=== PATIENT | female | born 1995 | race African-American/Black ===

== ENCOUNTER 2017-01-13 10:13 | Emergency (ER) | payer SELFPAY ==
[2017-01-13 10:28] VITALS: BMI 27.4
[2017-01-13] MEDS ORDERED: ACETAMINOPHEN 500 MG TABLET (FP) PO ONE (10:38)
[2017-01-13] MEDS ORDERED: SODIUM CHLORIDE 1,000 ML IV STA ×2 (10:38→12:36)
--- NOTE | 2017-01-13 10:59 | PDOC ---
History of Present Illness - General Chief Complaint: Syncope/Near Syncope Stated Complaint: SYNCOPE Time Seen by Provider: 01/13/17 10:19 History Source: Patient Exam Limitations: No Limitations - History of Present Illness Initial Comments: 01/13/17 11:00 21-year-old female presents the ED with a syncopal episode. Patient states the past 2 days has had headache, sore throat, fever, and myalgia. Patient states yesterday had Tea but did not have appetite for anything else. Today when she got up to brush her teeth, in the bathroom, the mother states she looked weak and next thing she knows she collapsed. But the mother was able to catch her and place her on the floor. Mother states she called EMS and by the time EMS arrived patient was back to baseline but concern for the other symptoms she was brought to the ER. Patient denies headache, ear pain, was due to her neck stiffness, chest pain, shortness of breath, cough, abdominal pain, nausea, diarrhea or dysuria. Patient denies recent travel, or medical history Presenting Symptoms: Dizziness, Syncope Timing/Duration: reports: resolved prior to arrival Severity/Quality: reports: moderate Associated Symptoms: Yes: Syncope Past History - Past Medical History Allergies/Adverse Reactions: Allergies Allergy/AdvReac Type Severity Reaction Status Date / Time No Known Allergies Allergy Verified 01/13/17 10:25 Home Medications: Ambulatory Orders NK [No Known Home Medication] 01/13/17 Other medical history: DENIES. - Reproductive History LMP Normal: Yes Is Patient Now?: No - Psycho/Social/Smoking Cessation Hx Anxiety: No Suicidal Ideation: No Smoking History: Never smoked Hx Alcohol Use: No Drug/Substance Use Hx: No Substance Use Type: None Patient Lives Alone: No Lives with/in: parents Review of Systems - Review of Systems Able to Perform ROS?: Yes Constitutional: Yes: Chills, Loss of Appetite, Weakness HEENTM: Yes: Throat Pain Respiratory: No: Symptoms reported Cardiac (ROS): Yes: Lightheadedness ABD/GI: Yes: Poor Appetite, Poor Fluid Intake : No: Symptoms Reported Musculoskeletal: No: Symptoms Reported Integumentary: No: Symptoms Reported Neurological: Yes: Weakness, Dizziness *Physical Exam - Vital Signs Last Vital Signs Temp Pulse Resp BP Pulse Ox 101.7 F H 97 H 18 136/71 100 01/13/17 10:26 03/16/17 10:26 01/13/17 10:26 01/13/17 10:26 01/13/17 10:26 - Physical Exam General Appearance: Yes: Nourished, Appropriately Dressed. No: Apparent Distress HEENT: positive: EOMI, [place], TMs Normal, Pharyngeal Erythema (mild with minimal exudate to 3+ tonsils) Neck: positive: Supple. negative: Lymphadenopathy (R), Lymphadenopathy (L) Respiratory/Chest: positive: Lungs Clear, Normal Breath Sounds. negative: Respiratory Distress, Accessory Muscle Use Cardiovascular: positive: Regular Rhythm, Regular Rate. negative: Murmur Gastrointestinal/Abdominal: positive: Soft. negative: Tenderness Integumentary: positive: Normal Color, Warm, Moist Neurologic: positive: Motor Strength 5/5 (ambulatory) ED Treatment Course - LABORATORY CBC & Chemistry Diagram: 01/13/17 11:20 01/13/17 11:20 - ADDITIONAL ORDERS Additional order review: Laboratory Results 01/13/17 01/13/17 01/13/17 12:00 11:20 11:20 Sodium 138 Potassium 3.5 Chloride 103 Carbon Dioxide 26 Anion Gap 9 BUN 10 Creatinine 0.7 Creat Clearance w eGFR > 60 Random Glucose 93 Lactic Acid 1.162 Calcium 8.6 Total Bilirubin 0.5 AST 14 L ALT 17 Alkaline Phosphatase 39 L Total Protein 7.2 Albumin 3.6 Urine Color Yellow Urine Appearance Clear Urine pH 6.0 Ur Specific [place] >= 1.030 Urine Protein Trace H Urine Glucose (UA) Negative Urine Ketones 1+ H Urine Blood Negative Urine Nitrite Negative Urine Bilirubin Negative Urine Urobilinogen 0.2 e.u/dl Ur Leukocyte Esterase Negative 01/13/17 11:08 Influenza Types A,B Antigen (KELLY) - Final Nasopharyngeal Swab - Final 01/13/17 11:08 Group A Strep Rapid Antigen - Final Throat 01/13/17 11:20 RBC 4.25 MCV 76.0 L MCHC 32.0 RDW 15.0 MPV 8.3 Neutrophils % 84.0 H Lymphocytes % 7.5 L Monocytes % 8.0 Eosinophils % 0.0 Basophils % 0.5 - Medications Given in the ED: ED Medications Discontinued Medications Generic Name Dose Route Start Last Admin Trade Name Freq PRN Reason Stop Dose Admin Acetaminophen 975 mg 01/13/17 10:38 01/13/17 11:19 Tylenol - PO 01/13/17 10:39 975 mg ONCE ONE Administration Sodium Chloride 1,000 mls @ 1,000 mls/hr 01/13/17 10:38 01/13/17 11:19 Normal Saline - IV 01/13/17 11:37 1,000 mls/hr ASDIR STA Administration Medical Decision Making - Medical Decision Making 01/13/17 10:53 Patient with URI symptoms since yesterday and poor appetite today had a syncopal episode when she got up to brush her teeth. Patient has complaints of myalgia, sore throat and weakness upon ED arrival. Patient also had a noted temp of 101.7. Patient was ordered for CBC, comp, lactic acid, IV fluids, urine urinalysis, rapid strep and influenza testing. 01/13/17 12:35 Laboratory Tests 01/13/17 01/13/17 01/13/17 11:20 11:20 11:20 WBC 12.0 H Hgb 10.3 L Hct 32.3 L Neutrophils % 84.0 H Sodium 138 Potassium 3.5 Chloride 103 Carbon Dioxide 26 Anion Gap 9 BUN 10 Creatinine 0.7 Random Glucose 93 Lactic Acid 1.162 Calcium 8.6 Total Bilirubin 0.5 AST 14 L ALT 17 Alkaline Phosphatase 39 L Urine Protein Urine Ketones Ur Leukocyte Esterase Urine HCG, Qual 01/13/17 12:00 WBC Hgb Hct Neutrophils % Sodium Potassium Chloride Carbon Dioxide Anion Gap BUN Creatinine Random Glucose Lactic Acid Calcium Total Bilirubin AST ALT Alkaline Phosphatase Urine Protein Trace H Urine Ketones 1+ H Ur Leukocyte Esterase Negative Urine HCG, Qual Pending Patient influenza negative. Positive for strep. Patient was revitalized L had a noted temperature of 102.8. Patient ordered for Motrin IV fluids, and first dose of azithromycin. *DC/Admit/Observation/Transfer Diagnosis at time of Disposition: Acute streptococcal pharyngitis Fever Qualifiers: Fever type: unspecified Qualified Code(s): R50.9 - Fever, unspecified - Discharge Dispostion Disposition: HOME Condition at time of disposition: Improved - Patient Instructions Printed Discharge Instructions: DI for Strep Throat Additional Instructions: Please take medication starting tomorrow since your first dose was given here in the ER. Please give Motrin or Tylenol every 6-8 hours for adequate pain and fever control. Push fluids. Eat soft nonabrasive food for the next 48 hours to alleviate discomfort. Return to ED if symptoms return or worsen.
[2017-01-13] MEDS ORDERED: ACETAMINOPHEN 325 MG TABLET (FP) ONE (11:13)
[2017-01-13 12:08] LABS: BASOPHIL 0.5 % (0-2.0); MCH 24.3 pg (25.7-33.7); MEAN PLT VOLUME 8.3 fl (7.5-11.1); PLATELET COUNT 233 K/MM3 (134-434)
[2017-01-13 12:20] LABS: URINE APPEARANCE CLEAR; URINE BILIRUBIN NEGATIVE (NEGATIVE); URINE BLOOD NEGATIVE (NEGATIVE); URINE COLOR YELLOW; URINE GLUCOSE (UA) NEGATIVE (NEGATIVE); URINE KETONE 1+ (NEGATIVE); URINE LEUK ESTERASE NEGATIVE (NEGATIVE); URINE NITRITE NEGATIVE (NEGATIVE); URINE PROTEIN TRACE (NEGATIVE); URINE UROBILINOGEN 0.2 E.U/dl E.U./dl (0.2-1.0)
[2017-01-13 12:24] LABS: ALBUMIN 3.6 g/dl (3.4-5.0); ANION GAP 9 (8-16); BILIRUBIN,TOTAL 0.5 mg/dL (0.2-1.0); CALCIUM 8.6 mg/dL (8.5-10.1); CO2 26 mmol/L (21-32); CREATININE 0.7 mg/dL (0.55-1.02); GLUCOSE,RANDOM 93 mg/dL (74-106); SGOT/AST 14 U/L (15-37); SGPT/ALT 17 U/L (12-78); TOT PROT 7.2 g/dl (6.4-8.2)
[2017-01-13 12:25] LABS: ALK PHOS 39 U/L (45-117)
[2017-01-13] MEDS ORDERED: IBUPROFEN 600 MG TABLET (FP) PO ONE ×2 (12:34→12:39)
[2017-01-13] MEDS ORDERED: AZITHROMYCIN 250 MG TABLET (FP) PO ONE (12:35)
[2017-01-13] MEDS ORDERED: AZITHROMYCIN 250 MG TABLET (FP) ONE (12:39)
[2017-01-13 14:01] VITALS: BP 122/78; PULSE 89; TEMP 99.4
--- NOTE | 2017-01-18 17:25 | EKG ---
Test Reason : Blood Pressure : / mmHG Vent. Rate : 094 BPM Atrial Rate : 094 BPM P-R Int : 148 ms QRS Dur : 094 ms QT Int : 408 ms P-R-T Axes : 029 032 033 degrees QTc Int : 510 ms NORMAL SINUS RHYTHM NONSPECIFIC T WAVE ABNORMALITY ABNORMAL ECG NO PREVIOUS ECGS AVAILABLE Confirmed by JUSTIN LOVE MD ([id number]) on 01/18/2017 5:25:30 PM Referred By: Confirmed By:JUSTIN LOVE MD
== END 2017-01-13 14:01 | disposition home or self-care (01) ==
LOC: JER 10:13
PROC: 3E0337Z Introduction of Electrolytic and Water Balance Substance into Peripheral Vein, Percutaneous Approach (ICD-10-PCS; principal; 2017-01-13)
DX: J02.0 Streptococcal pharyngitis (principal); B95.0 Streptococcus, group A, as the cause of diseases classified elsewhere; R50.81 Fever presenting with conditions classified elsewhere
CPT/HCPCS: 36415; 80053; 81003; 83605; 84703; 85025; 87070; 87430; 87804; 93005; 93010; 99285-25

== ENCOUNTER 2019-03-22 20:19 | Emergency (ER) | payer OTHER ==
[2019-03-22] MEDS ORDERED: IBUPROFEN 600 MG TABLET (FP) PO ONE ×2 (20:35→21:17)
--- NOTE | 2019-03-22 20:35 | PDOC ---
Rapid Medical Evaluation Time Seen by Provider: 03/22/19 20:32 Medical Evaluation: Allergies Allergy/AdvReac Type Severity Reaction Status Date / Time No Known Allergies Allergy Verified 01/13/17 10:25 03/22/19 20:33 I have performed a brief in-person evaluation of this patient. The patient presents with a chief complaint of: injured ankle during baseball game yesterday, "felt like i heard it crack", pt reports icing/wrapping it but still swollen Pertinent physical exam findings: mild swelling to left lat malleolus, tenderness superior to malleolus I have ordered the following: xray, ice pack The patient will proceed to the ED for further evaluation.
[2019-03-22 20:36] VITALS: BP 149/87; PULSE 88; TEMP 98.7; BMI 28.3
--- NOTE | 2019-03-22 21:58 | PDOC ---
History of Present Illness - General Chief Complaint: Injury Stated Complaint: SPRAIN ANKLE Time Seen by Provider: 03/22/19 20:32 History Source: Patient Exam Limitations: No Limitations - History of Present Illness Initial Comments: 03/22/19 21:56 HISTORY OF PRESENT ILLNESS: 23-year-old woman denies medical history presents emergency department for evaluation of left ankle pain status post eversion injury while playing baseball. Patient reports she was running on an uneven field and stepped in a depression in the ground causing her left ankle to eat for. Patient reported hearing a "crack" and fall onto the ground. Patient has been ambulatory on her ankle but is reported increased swelling and pain since injury happened on 03/21. No recent travel or sick contacts. PAST MEDICAL HISTORY: Denies past medical history SURGICAL HISTORY: Denies ALLERGIES: No known drug allergies REVIEW OF SYSTEMS General/Constitutional: Denies fever or chills. Denies weakness, weight change. HEENT: Denies change in vision. Denies ear pain or discharge. Denies sore throat. Cardiovascular: Denies chest pain or shortness of breath. Respiratory: Denies cough, wheezing, or hemoptysis. Gastrointestinal: Denies nausea, vomiting, diarrhea or constipation. Denies rectal bleeding. Genitourinary: Denies dysuria, frequency, or change in urination. Musculoskeletal: see HPI Skin and breasts: Denies rash or easy bruising. Neurologic: Denies headache, vertigo, loss of consciousness, or loss of sensation. Psychiatric: Denies depression or anxiety. Endocrine: Denies increased thirst. Denies abnormal weight change. Hematologic/Lymphatic: Denies anemia, easy bleeding, or history of blood clots. Allergic/Immunologic: Denies hives or skin allergy. Denies latex allergy. PHYSICAL EXAM General Appearance: Well-appearing, appropriately dressed. No apparent distress , no intoxication. HEENT: EOMI, PERRLA, normal ENT inspection, normal voice, TMs normal, pharynx normal. No conjunctival pallor. No photophobia, scleral icterus. Neck: Supple. Trachea midline. No tenderness, rigidity, carotid bruit, stridor , lymphadenopathy, or thyromegaly. Respiratory/Chest: Lungs CTAB. No shortness of breath, chest tenderness, respiratory distress, accessory muscle use. No crackles, rales, rhonchi, stridor , wheezing, dullness Cardiovascular: RRR. S1, S2. No JVD, murmur, bradycardia, tachycardia. Vascular Pulses: Dorsalis-Pedis (R): 2+, Dorsalis-Pedis (L): 2+ Gastrointestinal/Abdominal: Normal bowel sounds. Abdomen soft, non-distended. No tenderness or rebound tenderness. No organomegaly, pulsatile mass, guarding, hernia, hepatomegaly, splenomegaly. Lymphatic: No adenopathy, tenderness. Musculoskeletal/Extremities: Swelling present over the lateral malleolus of the left foot. Tender to palpation over the left malleolus. No crepitus, deformity or step-off present. Full flexion and extension of ankle against resistance. No tenderness to palpation over the navicular, base of the fifth metatarsal or medial malleolus. 2+ DP pulses present. Capillary refill is within normal limits. Neurovascular intact. Integumentary: Appropriate color, dry, warm. No cyanosis, erythema, jaundice or rash Neurologic: training representative II-XII intact. Fully oriented, alert. Appropriate mood/affect. Motor strength 5/5. No appreciable EOM palsy, facial droop or sensory deficit. Past History - Past Medical History Allergies/Adverse Reactions: Allergies Allergy/AdvReac Type Severity Reaction Status Date / Time No Known Allergies Allergy Verified 03/22/19 20:49 Home Medications: Ambulatory Orders NK [No Known Home Medication] 03/22/19 COPD: No - Immunization History Immunization Up to Date: Yes - Suicide/Smoking/Psychosocial Hx Smoking History: Unknown if ever smoked Have you smoked in the past 12 months: No Information on smoking cessation initiated: No Hx Alcohol Use: No Drug/Substance Use Hx: No Substance Use Type: None *Physical Exam - Vital Signs Last Vital Signs Temp Pulse Resp BP Pulse Ox 98.7 F 88 16 149/87 100 03/22/19 20:34 03/22/19 20:34 03/22/19 20:34 03/22/19 20:34 03/22/19 20:34 Procedures - Consent Consent obtained: Verbal, From Patient - Splinting Splint Location: Left: Ankle Pre-Proc Neuro Vasc Exam: normal Hand-Made Type: orthoglass Splint Type: Yes: Sugar Tong (stirrup) Post-Proc Neuro Vasc Exam: normal Reynaldo Bandage: 6" Sling: No Complications: No Post splint xray: No Progress: 03/22/19 21:56 pt tolerated well ED Treatment Course - Medications Given in the ED: ED Medications Discontinued Medications Generic Name Dose Route Start Last Admin Trade Name Velma PRN Reason Stop Dose Admin Ibuprofen 600 mg 03/22/19 20:35 03/22/19 21:19 Motrin - PO 03/22/19 20:36 600 mg ONCE ONE Administration Medical Decision Making - Medical Decision Making 03/22/19 21:58 A/P: 23-year-old female with left ankle pain for one day status post eversion injury Swelling present over the lateral malleolus of the left foot. Tender to palpation over the left malleolus. No crepitus, deformity or step-off present. Full flexion and extension of ankle against resistance. No tenderness to palpation over the navicular, base of the fifth metatarsal or medial malleolus. 2+ DP pulses present. Capillary refill is within normal limits. Neurovascular intact. X-rays of the left ankle as read by me: Nondisplaced fracture of the distal fibula seen in 2 views. Splinting-see procedure note for details Discharge home with orthopedic follow-up *DC/Admit/Observation/Transfer Diagnosis at time of Disposition: Fracture of distal fibula Qualifiers: Encounter type: initial encounter Fracture type: closed Fracture morphology: unspecified fracture morphology Laterality: left Qualified Code(s): S82.832A - Other fracture of upper and lower end of left fibula, initial encounter for closed fracture - Discharge Dispostion Disposition: HOME Condition at time of disposition: Stable Decision to Admit order: No - Referrals Referrals: Joey Ball MD [Staff Physician] - - Patient Instructions Additional Instructions: Take Tylenol or Motrin as needed for pain. Follow manufacturers instructions for appropriate dosage. Try not to walk or bear weight on your left ankle as much as possible for the next 3 days. Apply ice for 20 minutes and removed for at least 20 minutes before reapplying the ice. Whenever possible keep your foot elevated to decrease swelling to your ankle. You've been given the number for an orthopedist. Call for evaluation within the next 7 days for further evaluation. Return to emergency department for discoloration of the foot, numbness or tingling to the foot, worsening pain, or any other concerns. Thank you very much for choosing us to provide your emergent healthcare needs. - Post Discharge Activity Forms/Work/School Notes: Back to Work
== END 2019-03-22 22:11 | disposition home or self-care (01) ==
LOC: JERFT 20:19
PROC: 2W3RX1Z Immobilization of Left Lower Leg using Splint (ICD-10-PCS; principal; 2019-03-22)
DX: S82.832A Other fracture of upper and lower end of left fibula, initial encounter for closed fracture (principal); W18.39XA Other fall on same level, initial encounter; Y93.64 Activity, baseball; Y92.320 Baseball field as the place of occurrence of the external cause; Y99.8 Other external cause status
CPT/HCPCS: 73610-TC-LT-FY; 73630-TC-LT; 99282-25

== ENCOUNTER 2019-04-02 13:07 | Day surgery (SDC) | payer OTHER ==
[2019-03-30 16:51] VITALS: BMI 27.8
--- NOTE | 2019-04-02 13:27 | HP ---
[facility] - Chief Complaint Chief Complaint: left ankle fx - Past Medical History Allergies/Adverse Reactions: Allergies Allergy/AdvReac Type Severity Reaction Status Date / Time No Known Allergies Allergy Verified 03/22/19 20:49 ...LMP: 03/12/19 - Current Medications Current Medications: Home Medications Medication Instructions Recorded Oxycodone HCl/Acetaminophen 1 - 2 tab PO Q6H #30 tab MDD 6 04/02/19 [Percocet 5-325 mg Tablet] [facility] Physical Exam - Physical Examination General Appearance: Well Nourished, Well Developed, Alert & Oriented x3 ENT: Clear Lung: Normal air movement Heart: Regular rate & rhythm Extremities: Other (left ankle- splint intact, + swelling, + ttp, decr rom, nvi , xrays show displaced distal fibula fx) Neurological: Intact, Alert, Oriented [facility] Impression/Plan - Impression/Plan Impression: left ankle fx Operative Procedure: left ankle orif Date to be Performed: 04/02/19
[2019-04-02] MEDS ORDERED: PROPOFOL 20 ML ONE (14:34)
[2019-04-02] MEDS ORDERED: SUCCINYLCHOLINE CHLORIDE 200 MG/10 ML VIAL ONE (14:34)
[2019-04-02] MEDS ORDERED: ONDANSETRON 4 MG/2 ML VIAL ONE (14:34)
[2019-04-02] MEDS ORDERED: KETAMINE HCL 200 MG/20 ML VIAL ONE (14:34)
[2019-04-02] MEDS ORDERED: KETOROLAC TROMETHAMINE 30 MG/1 ML VIAL ONE (14:34)
[2019-04-02] MEDS ORDERED: ceFAZolin SODIUM 1 GM VIAL ONE (14:34)
[2019-04-02] MEDS ORDERED: DEXAMETHASONE SOD PHOSPHATE 4 MG/1 ML VIAL ONE (14:34)
[2019-04-02] MEDS ORDERED: MIDAZOLAM HCL 2 MG/2 ML SINGLE DOSE VIAL ONE ×2 (14:34→14:36)
[2019-04-02] MEDS ORDERED: LIDOCAINE HCL/PF 2% SDV 5ML VIAL ONE (14:34)
[2019-04-02] MEDS ORDERED: DEXMEDETOMIDINE HCL 200 MCG/2 ML IVPB ONE (14:39)
[2019-04-02] MEDS ORDERED: ceFAZolin 2 GRAM PREMIX BAG IVPB ONE (14:50)
[2019-04-02] MEDS ORDERED: ONDANSETRON 4 MG/2 ML VIAL IVPUSH PRN (15:18)
[2019-04-02] MEDS ORDERED: oxyCODONE HCL 5 MG TABLET PO PRN (15:18)
[2019-04-02] MEDS ORDERED: PROMETHAZINE HCL 25 MG/1 ML VIAL IVPB PRN (15:18)
[2019-04-02] MEDS ORDERED: ACETAMINOPHEN 1000 MG/100 ML VIAL (NON FORMULARY) IVPB ONE (15:19)
[2019-04-02] MEDS ORDERED: LACTATED RINGERS SOLUTION 1,000 ML IV SCH (15:30)
[2019-04-02] MEDS ORDERED: oxyCODONE HCL 5 MG TABLET ONE (17:00)
[2019-04-02 19:25] VITALS: BP 128/73; PULSE 75; TEMP 97.9
--- NOTE | 2019-04-03 17:21 | OP ---
DATE OF OPERATION: 04/02/2019 PREOPERATIVE DIAGNOSIS: Left lateral malleolar fracture, displaced. POSTOPERATIVE DIAGNOSIS: Left lateral malleolar fracture, displaced. PROCEDURE: Open reduction and internal fixation, left lateral malleolus. SURGICAL ATTENDING: Joey Ball MD [employer] TEACHER: PRUDENCE Wade ANESTHESIA: General with laryngeal mask anesthesia. CLOSURE: A Jose distal fibula plate with appropriate screws, 2-0 Vicryl in fascia and subcutaneous, 3-0 V-Loc for skin. ESTIMATED BLOOD LOSS: Negligible. COMPLICATION: None. CONDITION: To recovery room in stable condition. DESCRIPTION OF OPERATIVE PROCEDURE: Patient was taken to the operating room on April 02, 2019. General anesthesia with LMA was administered by the anesthesiologist. IV Kefzol was administered prophylactically prior to case. A well-padded pneumatic tourniquet was placed on the left proximal calf. The left lower extremity was prepped and draped in the usual and sterile fashion. The leg was exsanguinated with an Esmarch bandage, tourniquet inflated to 250 mmHg. An 8-cm longitudinal incision over the distal fibula was incised. Hemostasis achieved with Bovie cautery. Sharp dissection was carried down to the level of the bone, full thickness. Then periosteal elevator was used to clear up the fracture. Curettes and irrigation were used to remove soft tissue and clots from in and around the fracture. A pointed reduction clamp was used to obtain an anatomic reduction of the fibula. The fracture was lagged using standard lag techniques from anterior proximal to distal posterior, first drilling with 2.5, then over-drilling proximally and then screwing with a 3.5 screw, achieving excellent fixation and compression across the fracture. A distal fibula plate was then clamped to the lateral aspect of the distal fibula. One proximal and one distal nonlocking screw was placed by drilling, depth gauging, and screwing to appropriate size screws. This cinched the plate down to the bone. Multiple screws proximally and distally were then filled by drilling, depth gauging, and screwing to the appropriate size of locking screws. The 2 nonlocking screws were then removed and replaced with locking screws as well. Fluoroscopy in the AP, mortise, and lateral views revealed excellent position of the plate. The incision was irrigated with copious amounts of irrigation. The fascia was closed with 0 Vicryl, 2-0 subcutaneous and 3-0 Monocryl subcuticular, with skin glue for skin. A sterile U splint was applied. Patient awakened from anesthesia and transferred to recovery room in stable condition. No complications. Estimated blood loss negligible. Total tourniquet time was approximately 30 minutes. Rupinder NOBLE/[id number]
== END 2019-04-02 18:50 | disposition home or self-care (01) ==
LOC: JASU-SURG 13:07
PROVIDERS: ATTEND Orthopaedic Surgery
PROC: 0QSK04Z Reposition Left Fibula with Internal Fixation Device, Open Approach (ICD-10-PCS; principal; 2019-04-02 14:30)
DX: S82.62XA Displaced fracture of lateral malleolus of left fibula, initial encounter for closed fracture (principal); X58.XXXA Exposure to other specified factors, initial encounter; Y93.9 Activity, unspecified; Y92.9 Unspecified place or not applicable
CPT/HCPCS: 76000-TC-FY; 84703; 94760

== ENCOUNTER 2020-01-22 20:15 | Inpatient (IN) | payer OTHER ==
[2020-01-22 22:17] LABS: BASO % 0.3 % (0-2.0); EOS % 0.1 % (0-4.5); HEMATOCRIT 34.4 % (32.4-45.2); HEMOGLOBIN 11.5 GM/dL (10.7-15.3); LYMPH % 7.7 % (8-40); MCH 26.7 pg (25.7-33.7); MCHC 33.3 g/dl (32.0-36.0); MEAN CELL VOLUME 80.2 fl (80-96); MEAN PLT VOLUME 8.6 fl (7.5-11.1); MONO % 4.5 % (3.8-10.2); NEUT % 87.4 % (42.8-82.8); PLATELET COUNT 225 K/MM3 (134-434); RBC 4.29 M/mm3 (3.60-5.2); RDW 14.9 % (11.6-15.6); RETICULOCYTES 1.85 % (0.5-1.5); WHITE BLOOD COUNT 13.1 K/mm3 (4.0-10.0)
[2020-01-22 22:24] LABS: INR 0.96 (0.83-1.09); PROTHROMBIN TIME (PATIENT) 11.3 SEC (9.7-13.0)
[2020-01-22 22:40] LABS: BLOOD UREA NITROGEN 6.2 mg/dL (7-18); CALCIUM 9.2 mg/dL (8.5-10.1); CREATININE 0.7 mg/dL (0.55-1.3); POTASSIUM 3.8 mmol/L (3.5-5.1); URIC ACID 3.5 mg/dL (2.6-7.2)
[2020-01-22 22:41] LABS: EPI CELLS 9 /uL (0-25.1); HYALINE CASTS 0 /uL (0-3.1); URINE APPEARANCE CLEAR; URINE BACTERIA 444 /uL (0-1359); URINE BILIRUBIN NEGATIVE (NEGATIVE); URINE COLOR YELLOW; URINE GLUCOSE (UA) NEGATIVE (NEGATIVE); URINE KETONE NEGATIVE (NEGATIVE); URINE LEUK ESTERASE 1+ (NEGATIVE); URINE NITRITE NEGATIVE (NEGATIVE); URINE PROTEIN NEGATIVE (NEGATIVE); URINE RBC 5 /uL (0-23.9); URINE UROBILINOGEN 0.2 mg/dL (0.2-1.0); URINE WBC 46 /uL (0-25.8)
[2020-01-22 23:45] VITALS: BMI 36.6
[2020-01-22] MEDS ORDERED: ELECTROLYTE-148 SOLN 1,000 ML IV ONE (23:45)
[2020-01-23] MEDS ORDERED: PROMETHAZINE HCL 25 MG/1 ML VIAL ONE (00:06)
[2020-01-23] MEDS ORDERED: BUTORPHANOL TARTRATE 1 MG/ML VIAL ONE ×2 (00:06)
[2020-01-23] MEDS ORDERED: PROMETHAZINE HCL 25 MG/1 ML VIAL IVPB ONE (00:15)
[2020-01-23] MEDS ORDERED: BUTORPHANOL TARTRATE 1 MG/ML VIAL IVPB ONE (00:15)
--- NOTE | 2020-01-23 02:10 | HP ---
Past Medical History - Primary Care Physician PCP:: Kenney Gutierrez - Admission Chief Complaint: 24yo P0 with at EGA 41 weeks admitted with spont labor and SROM since 19:45. History of Present Illness: Post term at EGA 41 weeks. SROM at 19:45 on 01/22/20 with spont labor complicated by: obesity and excessive weight gain Hep C Ab reactive, with neative PCR History Source: Patient, Medical Record Limitations to Obtaining History: No Limitations - Past Medical History LOIN TRIMMER: No: Alzheimer's, CVA, Dementia, Migraine, Multiple Sclerosis, Peripheral Neuropathy, Parkinson's, Seizure, Syncope, TIA, Vertigo, Other Cardiovascular: No: AFIB, Aneurysm, Aortic Insufficiency, Aortic Stenosis, CAD, CHF, Deep Vein Thrombosis, HTN, Hyperlipdemia, [place], Mitral Insufficiency, Mitral Stenosis, Murmur, Pulmonary Hypertension, Other Pulmonary: No: Asthma, Bronchitis, Cancer, COPD, O2 Dependent, Pneumonia, Previously Intubated, Pulmonary Embolus, Pulmonary Fibrosis, Sleep Apnea, Other Gastrointestinal: No: Ascites, Cancer, Constipation, Crohn's Disease, Diverticulitis, Diverticulosis, Esophageal Varices, Gastritis, GERD, GI Bleed, Hemorrhoids, Hiatal Hernia, Inflamatory Bowel Disease, Irritable Bowel Disease, Pancreatitis, Peptic Ulcer Disease, Ulcerative Colitis, Other Hepatobiliary: No: Cirrhosis, Cholelithiasis, Cholecystitis, Choledocholit hiasis, Hepatitis A, Hepatitis B, Hepatitis C, Other Renal/: No: Renal Failure, Renal Inusuff, BPH, Cancer, Hematuria, Hemodialysis, Neurogenic Bladder, Renal Calculi, UTI, Other Reproductive: No: Ectopic , Endometriosis, Fibroids, PID, Polycystic Ovary Syndrome, Postmenopausal, Other ...: 4 ...Para: 0 ...Term: 0 ...: 0 ...Spon : 0 ...Induced : 3 ...Multiple Gestation: 0 ...LMP: 04/10/19 ... Weeks Gestation by Dates: 41.0 ...EDC by Dates: 01/15/20 ...EDC by Sono: 01/16/20 Heme/Onc: Yes: Anemia Infectious Disease: No: AIDS, C-Diff, Herpes Zoster, HIV, MRSA, STD's, Tuberculosis, VREF, Other Psych: No: Addictions, Anxiety, Bipolar, Depression, Panic, Psychosis, Schizophrenia, Other Musculoskeletal: No: Bursitis, Chronic low back pain, Hemiparesis, Hemiplegia, Osteoarthritis, Paraplegia, Other Rheumatology: No: Fibromyalgia, Gout, Lupus, Rheumatoid Arthritis, Sarcoidosis, Vasculitis, Other ENT: No: Allergic Rhinitis, Sinusitis, Other Dermatology: No: Basal Cell, Cellulitis, Eczema, Melanoma, Psoriasis, Squamous Cell, Other - Past Surgical History Past Surgical History: Yes: None Hx Myomectomy: No Hx Transabdominal Cerclage: No Additional Surgical History: Ankle plates - Smoking History Smoking history: Never smoked Have you smoked in the past 12 months: No - Alcohol/Substance Use Hx Alcohol Use: No History of Substance Use: reports: None - Social History ADL: Independent History of Recent Travel: No Home Medications - Allergies Allergies/Adverse Reactions: Allergies Allergy/AdvReac Type Severity Reaction Status Date / Time No Known Allergies Allergy Verified 01/22/20 21:18 - Home Medications Home Medications: Ambulatory Orders Ferrous Sulfate [Iron] 325 mg PO DAILY 01/22/20 RX: Vitamins (Sjr) - 1 tab PO DAILY 01/22/20 Family Medical History Family History: Unremarkable Review of Systems - Review of Systems Constitutional: reports: Other (Labor, contractions) Eyes: reports: No Symptoms HENT: reports: No Symptoms Neck: reports: No Symptoms Cardiovascular: reports: No Symptoms Respiratory: reports: No Symptoms Gastrointestinal: reports: No Symptoms Genitourinary: reports: Other (Leak of fluids) Breasts: reports: No Symptoms Reported Musculoskeletal: reports: No Symptoms Integumentary: reports: No Symptoms Neurological: reports: No Symptoms Endocrine: reports: No Symptoms Hematology/Lymphatic: reports: No Symptoms Psychiatric: reports: No Symptoms Pain Intensity: 7 Physical Exam - Maternity Vital Signs: Vital Signs Temperature 98.4 F 01/23/20 02:00 Pulse Rate 99 H 01/23/20 02:00 Respiratory Rate 20 01/23/20 02:00 Blood Pressure 138/82 01/23/20 02:00 O2 Sat by Pulse Oximetry (%) Constitutional: Yes: Well Nourished, No Distress, Calm Eyes: Yes: WNL, Conjunctiva Clear, EOM Intact HENT: Yes: WNL, Atraumatic, Normocephalic Neck: Yes: WNL, Supple, Trachea Midline Cardiovascular: Yes: WNL, Regular Rate and Rhythm Lungs: Clear to auscultation, Normal air movement Breast(s): Yes: WNL - Abdominal Exam/OB Fundal Height: 41 Number of Fetuses: Single Presentation: Vertex Contractions: Yes Regularity: Irregular Intensity: Moderate Monitor Mode: External Heart Rate (range): 140 Heart Rate Location: Midline Category: I Accelerations: Non-Uniform Decelerations: None - Vaginal Exam/OB Vaginal Bleediing: No Speculum Exam: No Dilatation (cm): 5 Effacement (%): 90 Amniotic Membrane Status: Leaking Nitrazine Test: Positive Amniotic Fluid: Yes: Clear Meconium: Light Presentation: Vertex/Position Station: -1 (Gynecoid pelvimetry. EFW ~3300 gram by Kael's maneuvers.) - Physical Exam Musculoskeletal: Yes: WNL Extremities: Yes: WNL Edema: Yes Edema: LLE: Trace, RLE: Trace Integumentary: Yes: WNL Deep Tendon Reflex Grade: Normal +2 ...Motor Strength: WNL Psychiatric: Yes: WNL, Alert, Oriented - Labs Lab Results: CBC, BMP 01/22/20 21:55 01/22/20 21:55 Hemorrhage Risk Assessment - Risk Factors Medium Risk Factors: Yes: None High Risk Factors: Yes: None Risk Score: 1 Risk Level: Medium Risk Imaging - Results Ultrasound: Report Reviewed Assessment/Plan 24yo P0 with at EGA 41 weeks admitted with spont labor and SROM since 19:45. Pt is in active labor but no dilation x 2-3 hrs. The FHR is category I and does not require intervention. The pt with arrest of dilation due to inadequate contractions. Plan to augment ctx's with pitocin. Pt had IV sedation earlier and declined epidural for now. Plan of care d/w pt and risks/benefits/alternatives were explained.
[2020-01-23] MEDS ORDERED: ELECTROLYTE-148 SOLN 1,000 ML IV SCH (02:15)
[2020-01-23] MEDS ORDERED: OXYTOCIN 30 UNITS in 0.9% NS 30 UNIT/500 ML INFUS.BAG IVPB ONE (02:18)
[2020-01-23] MEDS ORDERED: OXYTOCIN 30 UNITS in 0.9% NS 30 UNIT/500 ML INFUS.BAG IVPB SCH (02:30)
[2020-01-23] MEDS ORDERED: PCA PUMP NR ONE ×3 (02:32→11:28)
[2020-01-23] MEDS ORDERED: FENTANYL/BUPIVACAINE/NS/PF - PCEA - 50 ML DISP.SYRIN EP ONE ×2 (02:32→06:33)
[2020-01-23] MEDS ORDERED: NALOXONE HCL 0.4 MG/ML VIAL IVPUSH PRN (02:35)
[2020-01-23] MEDS ORDERED: SODIUM CHLORIDE 0.9% P/F 10 ML VIAL IJ ONE (02:40)
[2020-01-23] MEDS ORDERED: BUPIVACAINE HCL/PF 0.25% (2.5MG/ML) 10 ML VIAL ONE ×2 (02:43→08:01)
[2020-01-23] MEDS ORDERED: FENTANYL/BUPIVACAINE/NS/PF - PCEA - 50 ML DISP.SYRIN EP SCH (02:45)
[2020-01-23] MEDS ORDERED: LIDO 2%/EPI 1:200000 PRESRVFRE (20 ML SDVIAL) ONE (03:08)
[2020-01-23] MEDS ORDERED: LIDOCAINE HCL 1% PRESERVATIVE FREE - 30ML VIAL ONE (05:15)
[2020-01-23] MEDS ORDERED: OXYTOCIN 20 UNITS in 0.9% NS 20 UNIT/1,000 ML INFUS.BAG IV ONE (05:15)
--- NOTE | 2020-01-23 08:04 | PN ---
Ante-Partal Exam - Subjective Subjective: Pt w/o complaints. She has epidural in place. Pitocin is at 4mU Vital Signs: Vital Signs Temperature 99.4 F 01/23/20 07:00 Pulse Rate 100 H 01/23/20 06:30 Respiratory Rate 19 01/23/20 06:30 Blood Pressure 154/79 01/23/20 06:30 O2 Sat by Pulse Oximetry (%) 100 01/23/20 06:30 Bleeding: No Headache: No Visual changes: No Right upper quadrant pain: No Pain (scale 1-10): 2 - Contractions Contractions: Yes Regularity: Regular (q3min) Intensity: Moderate Monitor Mode: External - Exam during Labor Heart Rate: 145 Variability: Moderate Heart Rate Location: Midline Category: I Monitor Accelerations: Present Monitor Decelerations: None Exam: Vaginal Dilatation (cm): 9 Effacement (%): 90 Amniotic Membrane Status: Leaking Amniotic Fluid: Clear Presentation: Vertex Station: +1 - Intrapartum Hemorrhage Risk Medium Risk Factors: None High Risk Factors: None Risk Score: 0 Risk Level: Low Risk - Assessment/Plan Assessment/Plan: 24yo P0 wih spontaneous labor. Labor progressing in active phase. Fetus with category I tracing. Plan to monitor labor progress. Anticipate
[2020-01-23 09:04] LABS: POC NITRAZINE POS
[2020-01-23] MEDS ORDERED: BENZOCAINE 20% 57 GM BOTTLE TP PRN (10:31)
[2020-01-23] MEDS ORDERED: BISACODYL 10 MG SUPP.RECT RC PRN (10:31)
[2020-01-23] MEDS ORDERED: WITCH HAZEL 50% (TUCKS) 40 PAD/JAR PAD TP PRN (10:31)
[2020-01-23] MEDS ORDERED: BENZOCAINE 28 GM HEMORRHOIDAL OINTMENT TP PRN (10:31)
[2020-01-23] MEDS ORDERED: METHYLERGONOVINE MALEATE 0.2 MG/1 ML AMP IM PRN (10:31)
--- NOTE | 2020-01-23 10:37 | PN ---
Delivery - Delivery Vaginal Delivery: Spontaneous Type of Anesthesia: Local, Epidural Episiotomy/Laceration: Midline (cx full, median episiotomy done , head delivered , nasopharynex suctioned , ant and post shoulder delivered with no difficulty , 9/9 , episiotomy repaired with 2.0 chromic in 3 layers , no complication, baby bonded with mom) EBL (cc): 300 Delivery, Single - [place] Feeding Plan Initial Plan: Elected not to breastfeed exclusively throughout hospitalization
[2020-01-23] MEDS ORDERED: D5W-LR W/ 20 UNITS OXYTOCIN 20 UNIT/1,000 ML INFUS.BAG IV SCH (10:45)
[2020-01-23] MEDS ORDERED: OXYTOCIN 20 UNITS in 0.9% NS 20 UNIT/1,000 ML INFUS.BAG IV SCH (10:45)
[2020-01-23] MEDS ORDERED: IBUPROFEN 600 MG TABLET (FP) PO ONE (12:38)
[2020-01-23] MEDS ORDERED: ACETAMINOPHEN 325 MG TABLET (FP) ONE (12:39)
[2020-01-23] MEDS: ACETAMINOPHEN 325 MG TABLET (FP) PO PRN ×2 (12:45→17:44)
[2020-01-23] MEDS: IBUPROFEN 600 MG TABLET (FP) PO PRN ×2 (12:45→17:42)
[2020-01-23] MEDS: FERROUS SO4 325 MG TABLET (FP) PO SCH (22:52)
[2020-01-24] MEDS: ACETAMINOPHEN 325 MG TABLET (FP) PO PRN ×4 (02:47→22:27)
[2020-01-24] MEDS: IBUPROFEN 600 MG TABLET (FP) PO PRN ×4 (02:49→22:28)
[2020-01-24 08:58] LABS: BASO % 0.1 % (0-2.0); EOS % 0.4 % (0-4.5); HEMATOCRIT 30.9 % (32.4-45.2); HEMOGLOBIN 10.1 GM/dL (10.7-15.3); LYMPH % 12.7 % (8-40); MCH 26.6 pg (25.7-33.7); MCHC 32.7 g/dl (32.0-36.0); MEAN CELL VOLUME 81.4 fl (80-96); MEAN PLT VOLUME 8.6 fl (7.5-11.1); MONO % 5.4 % (3.8-10.2); NEUT % 81.4 % (42.8-82.8); PLATELET COUNT 216 K/MM3 (134-434); RBC 3.79 M/mm3 (3.60-5.2); RDW 15.5 % (11.6-15.6); WHITE BLOOD COUNT 19.5 K/mm3 (4.0-10.0)
[2020-01-24] MEDS: PRENATAL VITAMINS W/ FOLIC ACID TABLET (FP) PO SCH (09:44)
[2020-01-24] MEDS: FERROUS SO4 325 MG TABLET (FP) PO SCH ×2 (09:44→22:28)
[2020-01-24] MEDS ORDERED: SENNOSIDES/DOCUSATE COMBO (SENNA PLUS) TABLET (UD) PO PRN (22:00)
[2020-01-25] MEDS: ACETAMINOPHEN 325 MG TABLET (FP) PO PRN ×2 (06:32→10:40)
[2020-01-25] MEDS: IBUPROFEN 600 MG TABLET (FP) PO PRN ×2 (06:32→10:39)
[2020-01-25] MEDS: PRENATAL VITAMINS W/ FOLIC ACID TABLET (FP) PO SCH (10:31)
[2020-01-25] MEDS: FERROUS SO4 325 MG TABLET (FP) PO SCH (10:31)
[2020-01-25 12:06] VITALS: BP 131/68; PULSE 80; TEMP 98.3
--- NOTE | 2020-01-25 19:05 | DS ---
Physical Exam-MEDICAL RECORD SPECIALIST Vital Signs: Vital Signs Temperature 98.3 F 01/25/20 10:00 Pulse Rate 80 01/25/20 10:00 Respiratory Rate 18 01/25/20 10:00 Blood Pressure 131/68 01/25/20 10:00 O2 Sat by Pulse Oximetry (%) 96 01/23/20 11:40 Constitutional: Yes: Well Nourished, No Distress, Calm Eyes: Yes: WNL, Conjunctiva Clear, EOM Intact HENT: Yes: WNL, Atraumatic, Normocephalic Neck: Yes: WNL, Supple, Trachea Midline Cardiovascular: Yes: WNL, Regular Rate and Rhythm Respiratory: Yes: WNL, Regular, CTA Bilaterally Gastrointestinal: Yes: WNL ...Rectal Exam: Yes: WNL Renal/: Yes: WNL ....Post : Yes: Uterus firm, Uterus non-tender, Slight lochia rubra Breast(s): Yes: WNL Musculoskeletal: Yes: WNL Extremities: Yes: WNL Edema: No Integumentary: Yes: WNL Neurological: Yes: WNL, Alert, Oriented ...Motor Strength: WNL Psychiatric: Yes: WNL, Alert, Oriented Labs: CBC, BMP 01/24/20 08:30 01/22/20 21:55 Delivery - Delivery Vaginal Delivery: Spontaneous Type of Anesthesia: Epidural Episiotomy/Laceration: Midline EBL (cc): 300 Delivery, Single - Stages of Labor Date 1st Stage Initiatied: 01/23/20 Time 1st Stage Initiated: 12:10 Date 2nd Stage Initiated: 01/23/20 Time 2nd Stage Initiated: 08:55 Date of Delivery: 01/23/20 Time of Delivery: 09:36 Time Placenta Delivered: 09:50 Placenta: Yes: Spontaneous - 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 Infant Gender: Female Weight: 7 lb 3 oz Position: Left, OA Total Hours ROM (Hrs/Mins): 14Hrs/15Mins - 1 Minute Total Score: 9 5 Minutes Total Score: 9 - [place] Feeding Plan Initial Plan: Elected not to breastfeed exclusively throughout hospitalization Discharge Summary Problems reviewed: Yes Reason For Visit: LABOR labor Procedures: Principal: Hospital Course: no complication Condition: Stable - Instructions Diet, Activity, Other Instructions: regular diet, no intercourse , follow up office 4 weeks, if fever, pain, heavy vaginal bleeding call MD Referrals: Wong Hernandez MD [Staff Physician] - Disposition: HOME - Home Medications Comprehensive Discharge Medication List: Ambulatory Orders Ferrous Sulfate [Iron] 325 mg PO DAILY 01/22/20 Vitamins (Sjr) - 1 tab PO DAILY 01/22/20 Ibuprofen [Motrin -] 600 mg PO QID #28 tablet 01/23/20
== END 2020-01-25 13:30 | disposition home or self-care (01) | DRG 560 ==
LOC: JDEL 20:15 → JLDR 21:10 → J3W 01-23 14:43
PROVIDERS: ADMIT Obstetrics & Gynecology; ATTEND Obstetrics & Gynecology
PROC: 10E0XZZ Delivery of Products of Conception, External Approach (ICD-10-PCS; principal; 2020-01-23)
DX: O48.0 Post-term pregnancy (principal); O99.213 Obesity complicating pregnancy, third trimester; Z3A.41 41 weeks gestation of pregnancy; Z37.0 Single live birth
CPT/HCPCS: 36415; 59409; 80048; 81003; 82977; 83010; 83986-QW; 84450; 84460; 84550; 85025; 85044; 85610; 85730; 86850; 86900; 86901; 87389

== ENCOUNTER 2021-05-30 19:16 | Inpatient (IN) | payer OTHER ==
[2021-05-30 19:30] VITALS: BMI 30.9
[2021-05-30] MEDS ORDERED: ACETAMINOPHEN 500 MG TABLET (FP) PO ONE (20:21)
[2021-05-30 20:31] LABS: BASO % 0.2 % (0-2.0); HEMATOCRIT 34.1 % (32.4-45.2); HEMOGLOBIN 11.4 GM/dL (10.7-15.3); MCH 26.1 pg (25.7-33.7); MCHC 33.3 g/dl (32.0-36.0); MEAN CELL VOLUME 78.3 fl (80-96); MEAN PLT VOLUME 8.2 fl (7.5-11.1); MONO % 6.1 % (3.8-10.2); NEUT % 66.7 % (42.8-82.8); PLATELET COUNT 258 10^3/uL (134-434); RBC 4.35 M/mm3 (3.60-5.2); RDW 13.7 % (11.6-15.6); WHITE BLOOD COUNT 4.9 K/mm3 (4.0-10.0)
[2021-05-30] MEDS ORDERED: ACETAMINOPHEN 325 MG TABLET (FP) ONE (20:40)
[2021-05-30 20:52] LABS: CALCIUM 8.8 mg/dL (8.5-10.1)
[2021-05-30 20:53] LABS: ALBUMIN 4.2 g/dl (3.4-5.0); BLOOD UREA NITROGEN 9.7 mg/dL (7-18)
[2021-05-30 20:56] LABS: CREATININE 0.7 mg/dL (0.55-1.3)
[2021-05-30 20:57] LABS: BILIRUBIN,TOTAL 0.4 mg/dL (0.2-1); TOT PROT 8.5 g/dl (6.4-8.2)
[2021-05-31 01:24] LABS: INR 1.15 (0.83-1.09); PROTHROMBIN TIME (PATIENT) 13.9 SEC (9.7-13.0)
[2021-05-31 01:27] LABS: ACTIVATED PTT 31.1 SECONDS (25.2-36.5)
[2021-05-31 01:32] LABS: EPI CELLS 8 /uL (0-25.1); HYALINE CASTS 1 /uL (0-3.1); URINE APPEARANCE CLEAR; URINE BACTERIA 540 /uL (0-1359); URINE BILIRUBIN NEGATIVE (NEGATIVE); URINE COLOR YELLOW; URINE GLUCOSE (UA) NEGATIVE (NEGATIVE); URINE KETONE TRACE (NEGATIVE); URINE LEUK ESTERASE NEGATIVE (NEGATIVE); URINE NITRITE NEGATIVE (NEGATIVE); URINE PROTEIN NEGATIVE (NEGATIVE); URINE RBC 4 /uL (0-23.9); URINE UROBILINOGEN 0.2 mg/dL (0.2-1.0); URINE WBC 11 /uL (0-25.8)
[2021-05-31] MEDS ORDERED: PROMETHAZINE HCL 25 MG/1 ML VIAL IVPUSH PRN (02:20)
[2021-05-31] MEDS ORDERED: ONDANSETRON 4 MG/2 ML VIAL IVPUSH PRN (02:20)
[2021-05-31] MEDS ORDERED: LACTATED RINGERS SOLUTION 1,000 ML IV SCH (02:30)
[2021-05-31] MEDS ORDERED: PROPOFOL 20 ML ONE (02:32)
[2021-05-31] MEDS ORDERED: ROCURONIUM BROMIDE 50 MG/5 ML SYRINGE ONE (02:32)
[2021-05-31] MEDS ORDERED: MIDAZOLAM HCL 2 MG/2 ML SINGLE DOSE VIAL ONE (02:32)
[2021-05-31] MEDS ORDERED: LIDOCAINE HCL/PF 2% SDV 5ML VIAL ONE (02:33)
[2021-05-31] MEDS ORDERED: ceFAZolin SODIUM 1 GM VIAL IVPB ONE (05:34)
[2021-05-31] MEDS ORDERED: ceFAZolin SODIUM 1 GM VIAL ONE (05:39)
[2021-05-31] MEDS ORDERED: SODIUM CHLORIDE 0.9% P/F 10 ML VIAL IJ ONE (05:39)
[2021-05-31] MEDS ORDERED: DEXAMETHASONE SOD PHOSPHATE 4 MG/1 ML VIAL ONE (05:39)
[2021-05-31] MEDS ORDERED: BUPIVACAINE HCL/PF 0.5% (5MG/ML) 10 ML VIAL ONE (05:58)
[2021-05-31] MEDS ORDERED: KETOROLAC TROMETHAMINE 30 MG/1 ML VIAL ONE (06:06)
[2021-05-31] MEDS ORDERED: GLYCOPYRROLATE 0.2 MG/1 ML VIAL ONE (06:08)
[2021-05-31] MEDS ORDERED: NEOSTIGMINE METHYLSULFATE 0.5 MG/ML - 10 ML MDV ONE (06:09)
[2021-05-31] MEDS ORDERED: BUPIVACAINE HCL/PF 0.5% (5MG/ML) 10 ML VIAL IJ ONE (06:28)
[2021-05-31] MEDS ORDERED: ONDANSETRON 4 MG/2 ML VIAL ONE (07:13)
[2021-05-31] MEDS ORDERED: ACETAMINOPHEN 325 MG TABLET (FP) PO ONE (13:15)
[2021-05-31 15:28] VITALS: BP 125/68; PULSE 81; TEMP 98.2
== END 2021-05-31 16:25 | disposition home or self-care (01) | DRG 545 ==
LOC: JER 19:16 → JERBED 05-31 01:54 → J7W 05-31 08:11
PROVIDERS: ADMIT Obstetrics & Gynecology; ATTEND Obstetrics & Gynecology
PROC: 10D27ZZ Extraction of Products of Conception, Ectopic, Via Natural or Artificial Opening (ICD-10-PCS; principal; 2021-05-31 03:00)
PROC: 0UT54ZZ Resection of Right Fallopian Tube, Percutaneous Endoscopic Approach (ICD-10-PCS; 2021-05-31 03:00)
DX: O00.101 Right tubal pregnancy without intrauterine pregnancy (principal); K66.1 Hemoperitoneum
CPT/HCPCS: 36415; 76817-TC; 80053; 81003; 83690; 84702; 85025; 85610; 85730; 86850; 86900; 86901; 87086; 88305-TC; 93005; 93010; 94760; 99285-25; C9803; U0003; U0005

== ENCOUNTER 2022-04-12 10:45 | Inpatient (IN) | payer OTHER ==
[2022-04-12] MEDS: DEXTROSE 5%-LACTATED RINGERS 1,000 ML IV SCH (11:00)
[2022-04-12] MEDS ORDERED: PROMETHAZINE HCL 25 MG/1 ML VIAL IVPUSH ONE (11:30)
[2022-04-12] MEDS ORDERED: BUTORPHANOL TARTRATE 1 MG/ML VIAL IVPUSH ONE (11:30)
[2022-04-12 11:32] LABS: BASO % 0.3 % (0-2.0); EOS % 0.3 % (0-4.5); HEMATOCRIT 34.7 % (32.4-45.2); HEMOGLOBIN 11.4 GM/dL (10.7-15.3); LYMPH % 16.2 % (8-40); MCH 25.8 pg (25.7-33.7); MCHC 32.8 g/dl (32.0-36.0); MEAN CELL VOLUME 78.5 fl (80-96); MEAN PLT VOLUME 9.2 fl (7.5-11.1); NEUT % 77.2 % (42.8-82.8); PLATELET COUNT 242 10^3/uL (134-434); RBC 4.43 M/mm3 (3.60-5.2); RDW 15.9 % (11.6-15.6)
[2022-04-12 11:41] LABS: INR 0.93 (0.83-1.09); PROTHROMBIN TIME (PATIENT) 10.7 SEC (9.7-13.0)
[2022-04-12 11:43] LABS: CALCIUM 9.2 mg/dL (8.5-10.1)
[2022-04-12 11:44] LABS: ACTIVATED PTT 26.7 SECONDS (25.2-36.5)
[2022-04-12] MEDS ORDERED: BUTORPHANOL TARTRATE 2 MG/ML VIAL ONE (11:45)
[2022-04-12] MEDS ORDERED: PROMETHAZINE HCL 25 MG/1 ML VIAL ONE (11:46)
[2022-04-12 11:47] LABS: CREATININE 0.6 mg/dL (0.55-1.3)
[2022-04-12] MEDS ORDERED: OXYTOCIN 20 UNITS in 0.9% NS 20 UNIT/1,000 ML INFUS.BAG IV ONE ×2 (12:01→16:38)
[2022-04-12 12:24] VITALS: BMI 37.5
[2022-04-12] MEDS: OXYTOCIN 20 UNITS in 0.9% NS 20 UNIT/1,000 ML INFUS.BAG IV SCH ×2 (15:40→16:43)
[2022-04-12] MEDS ORDERED: oxyCODONE HCL 5 MG TABLET PO PRN (16:36)
[2022-04-12] MEDS ORDERED: BISACODYL 10 MG SUPP.RECT RC PRN (16:36)
[2022-04-12] MEDS ORDERED: ACETAMINOPHEN 325 MG TABLET (FP) PO PRN (16:36)
[2022-04-12] MEDS ORDERED: BENZOCAINE 20% 57 GM BOTTLE TP PRN (16:36)
[2022-04-12] MEDS ORDERED: METHYLERGONOVINE MALEATE 0.2 MG/1 ML AMP IM PRN (16:36)
[2022-04-12] MEDS ORDERED: BENZOCAINE 28 GM HEMORRHOIDAL OINTMENT TP PRN (16:36)
[2022-04-12] MEDS ORDERED: WITCH HAZEL 50% (TUCKS) 40 PAD/JAR PAD TP PRN (16:36)
[2022-04-12] MEDS ORDERED: METHYLERGONOVINE MALEATE 0.2 MG/1 ML AMP IM ONE (16:37)
[2022-04-12 17:17] LABS: CORD BASE EXCESS -6.1 mmol/L (0-2); CORD HCO3 19.9 mmHg (20-29); CORD pH 7.304 (7.14-7.44)
[2022-04-12 17:21] LABS: CORD BASE EXCESS -4.3 mmol/L (0-2); CORD HCO3 23.5 mmHg (20-29); CORD PCO2 54.6 mmHg (30-78); CORD pH 7.251 (7.14-7.44)
[2022-04-12] MEDS: IBUPROFEN 600 MG TABLET (FP) PO PRN (18:21)
[2022-04-13] MEDS: IBUPROFEN 600 MG TABLET (FP) PO PRN ×3 (05:52→20:00)
[2022-04-13 08:06] LABS: BASO % 0.1 % (0-2.0); EOS % 0.7 % (0-4.5); HEMATOCRIT 29.1 % (32.4-45.2); HEMOGLOBIN 9.6 GM/dL (10.7-15.3); LYMPH % 19.3 % (8-40); MCHC 32.9 g/dl (32.0-36.0); MEAN PLT VOLUME 9.2 fl (7.5-11.1); MONO % 5.9 % (3.8-10.2); PLATELET COUNT 212 10^3/uL (134-434); RBC 3.68 M/mm3 (3.60-5.2); RDW 15.7 % (11.6-15.6); WHITE BLOOD COUNT 9.3 K/mm3 (4.0-10.0)
[2022-04-13] MEDS: DEXTROSE 5%-LACTATED RINGERS 1,000 ML IV SCH (19:34)
[2022-04-13] MEDS ORDERED: SENNOSIDES/DOCUSATE COMBO (SENNA PLUS) TABLET (UD) PO PRN (22:00)
[2022-04-14] MEDS: IBUPROFEN 600 MG TABLET (FP) PO PRN (05:26)
[2022-04-14 08:23] VITALS: BP 138/90; PULSE 70; TEMP 98.2
== END 2022-04-14 13:20 | disposition home or self-care (01) | DRG 560 ==
LOC: JLDR 10:45 → J3W 17:30
PROVIDERS: ADMIT Obstetrics & Gynecology; ATTEND Obstetrics & Gynecology
PROC: 0HQ9XZZ Repair Perineum Skin, External Approach (ICD-10-PCS; principal; 2022-04-12)
PROC: 10E0XZZ Delivery of Products of Conception, External Approach (ICD-10-PCS; 2022-04-12)
DX: O48.0 Post-term pregnancy (principal); O99.013 Anemia complicating pregnancy, third trimester; Z3A.41 41 weeks gestation of pregnancy; O70.0 First degree perineal laceration during delivery; Z37.0 Single live birth
CPT/HCPCS: 36415; 36600; 59025; 59409; 76819-TC; 80048; 82803; 85025; 85610; 85730; 86780; 86803; 86850; 86900; 86901; 87522; C9803-CS; U0003; U0005

== ENCOUNTER 2025-05-02 00:04 | Emergency (ER) | payer OTHER ==
[2025-05-02 00:19] VITALS: BP 141/78; PULSE 85; RESP 16; TEMP 98.2; BMI 34.1
[2025-05-02] MEDS ORDERED: LIDOCAINE 4% PATCH TP ONE (00:31)
[2025-05-02] MEDS ORDERED: ACETAMINOPHEN 500 MG TABLET (FP) ONE (00:31)
[2025-05-02] MEDS ORDERED: KETOROLAC TROMETHAMINE 30 MG/1 ML VIAL ONE (00:32)
[2025-05-02] MEDS: KETOROLAC TROMETHAMINE 30 MG/1 ML VIAL IM ONE (00:35)
[2025-05-02] MEDS: ACETAMINOPHEN 500 MG TABLET (FP) PO ONE (00:36)
[2025-05-02] MEDS: LIDOCAINE 5% TOPICAL PATCH TP ONE (00:36)
[2025-05-02] MEDS ORDERED: LIDOCAINE PATCH REMOVAL MC SCH (22:00)
== END 2025-05-02 01:43 | disposition home or self-care (01) ==
LOC: JER 00:04
PROC: 3E0233Z Introduction of Anti-inflammatory into Muscle, Percutaneous Approach (ICD-10-PCS; principal; 2025-05-02)
DX: M54.50 Low back pain, unspecified (principal); V49.40XA Driver injured in collision with unspecified motor vehicles in traffic accident, initial encounter; Y92.410 Unspecified street and highway as the place of occurrence of the external cause
CPT/HCPCS: 99284-25